=== PATIENT | female | born 1955 | race Caucasian/White ===

== ENCOUNTER → 2020-05-21 06:48 | Outpatient (CLI) | payer OTHER, MEDICARE, SELFPAY ==
[2020-05-21 11:45] LABS: Influenza Control Positive
[2020-05-21 20:23] LABS: SARS-CoV-2 RNA PCR Negative
== END ==
PROVIDERS: PCP Internal Medicine; Visit Provider Internal Medicine
DX: R68.89 Other general symptoms and signs (principal); Z20.822 Contact with and (suspected) exposure to COVID-19
CPT/HCPCS: 87804; C9803; U0003; U0005

== ENCOUNTER → 2021-02-15 03:03 | Outpatient (CLI) | payer OTHER, MEDICARE, SELFPAY ==
[2021-02-15 19:39] LABS: SARS-CoV-2 RNA PCR Negative
== END ==
PROVIDERS: PCP Internal Medicine; Visit Provider Internal Medicine
DX: Z20.822 Contact with and (suspected) exposure to COVID-19 (principal)
CPT/HCPCS: C9803; U0003; U0005

== ENCOUNTER 2022-03-17 10:47 | Emergency (ER) | payer OTHER, MEDICARE, SELFPAY ==
--- NOTE | ~2022-03-17 | XR_ITS ---
EXAMINATION: XR hand LT min 3V DATE: 03/17/2022 11:35 INDICATION: Left hand pain. TECHNIQUE: 3 views of left hand were obtained. COMPARISON: Left hand second digit radiographs 12/29/2013 FINDINGS: There is ulnar subluxation of second distal phalanx with respect to the middle phalanx. No fracture. There is severe osteoarthritis of first carpometacarpal joint, first interphalangeal joint, and second and third distal interphalangeal joints. There is mild to moderate osteoarthritis of the other interphalangeal joints and mild osteoarthritis of first metacarpophalangeal joint. IMPRESSION: 1. Polyarticular osteoarthritis. Reviewed, dictated and finalized at location A. [employer]
[2022-03-17 10:58] VITALS: BP 143/92; PULSE 109; RESP 16; TEMP 36.8; O2SAT 100
--- NOTE | 2022-03-17 11:43 | ED.GENADULT ---
HPI - General Adult General Chief complaint: Extremity Injury, Upper Stated complaint: lt hand injury Source: patient Mode of arrival: ambulatory Limitations: no limitations History of Present Illness HPI narrative: Patient presents for evaluation of pain, swelling, erythema at the left hand. She indicates she was caryring her dog yesterday when she bumped her hand against a sliding door. She now reports 10/10 pain in the affected area. She tried taking some meloxicam for her symptoms. Typically the medication is quite effective when she takes a for other reasons.. She does have a history of gout but has not had an exacerbation in many years. She is not on allopurinol. She is right hand dominant. She has decreased ROM in the left hand. She has been applying ice as well. Related Data Home Medications Medication Instructions Recorded Confirmed aspirin 81 mg tablet,delayed 81 mg PO DAILY 03/23/19 03/17/22 release (Adult Low Dose Aspirin) calcium carbonate 500 mg calcium 500 mg PO BID 03/23/19 03/17/22 (1,250 mg) tablet (Calcium 500) coenzyme Q10 100 mg capsule 100 mg PO DAILY 03/23/19 03/17/22 cyanocobalamin (vitamin B-12) 1,000 mcg PO DAILY 03/23/19 03/17/22 1,000 mcg capsule multivitamin 1 tablet PO DAILY 03/23/19 03/17/22 omega-3 fatty acids 1,000 mg 1,000 mg PO BID 03/23/19 03/17/22 capsule (Fish Oil Concentrate) folic acid 800 mcg tablet 0.4 mg PO DAILY 05/02/21 03/17/22 cholecalciferol (vitamin D3) 50 50 mcg PO .every other day 10/23/21 03/17/22 mcg (2,000 unit) capsule Allergies Allergy/AdvReac Type Severity Reaction Status Date / Time No Known Allergies Allergy Unknown Verified 03/17/22 10:54 Review of Systems Review of Systems: CONSTITUTIONAL: Denies fever, chills, or sweats. EYES: Denies visual changes, redness, or discharge. ENT: Denies rhinorrhea, congestion, sore throat, or otalgia. CARDIOVASCULAR: Denies chest pain, palpitations, or edema. RESPIRATORY: Denies cough or dyspnea. GASTROINTESTINAL: Denies abdominal pain, nausea, vomiting, or diarrhea. GENITOURINARY: Denies dysuria or hematuria. SKIN: Reports redness to the left hand. Denies rash or itching. MUSCULOSKELETAL: Reports swelling and pain in the left hand. NEUROLOGIC: Denies headache, numbness, dizziness, or weakness. PSYCHIATRIC: Denies anxiety or depression. [facility] Past Medical History Medical History (Updated 03/17/22 @ 11:59 by Scout Waldron, [facility], ) Benign essential hypertension BMI 29.0-29.9,adult BMI 30.0-30.9,adult BMI 32.0-32.9,adult Cataracts, bilateral Chronic pain of both knees Colon cancer screening Contact dermatitis DJD (degenerative joint disease), multiple sites Elevated homocysteine Elevated serum homocysteine level Encounter for preventive health examination Encounter for routine adult health examination without abnormal findings Exposure to COVID-19 virus Family history of diabetes mellitus Grief History of gestational diabetes Hypercalcemia Hyperlipidemia Lateral epicondylitis of right elbow Multiple allergies On [facility] drug therapy Post-menopausal Type O blood, Rh positive Varicose veins of both lower extremities Surgical History Surgical History Hx of total knee replacement Family History Family History Mother Hypertension Family history of chronic obstructive pulmonary disease Family history of diabetes mellitus in first degree relative Father Family history of diabetes mellitus in first degree relative Social History Social History Smoking status: Never smoker Alcohol intake: current Exam Narrative: GENERAL: Well-appearing, well-nourished, and in no acute distress. HEAD: Normocephalic, atraumatic. EYES: PERRLA and EOMI. ENT: Nares clear, no rhinorrhea or epistaxis. Mucous membranes moist.
[2022-03-17] MEDS: methylPREDNISolone SOD SUCC 125 MG VIAL IM (11:59)
== END 2022-03-17 12:06 | disposition home or self-care (01) ==
PROVIDERS: Emergency Provider Nurse Practitioner; PCP Internal Medicine
DX: S60.222A Contusion of left hand, initial encounter (principal); W22.8XXA Striking against or struck by other objects, initial encounter; M10.9 Gout, unspecified; I10 Essential (primary) hypertension; E78.5 Hyperlipidemia, unspecified; H26.9 Unspecified cataract; I83.93 Asymptomatic varicose veins of bilateral lower extremities
CPT/HCPCS: 73130; 96372; 99213; G0463; J2930

== ENCOUNTER 2022-04-02 12:33 | Outpatient (CLI) | payer OTHER, MEDICARE, SELFPAY ==
[2022-04-02 14:31] LABS: Influenza A QL RT-PCR Negative (Negative); Influenza B QL RT-PCR Negative (Negative); SARS-CoV-2 RNA PCR Positive
== END 2022-04-02 12:34 | disposition home or self-care (01) ==
LOC: ANHLAB 12:35
PROVIDERS: PCP Internal Medicine; Visit Provider Internal Medicine
DX: U07.1 COVID-19 (principal)
CPT/HCPCS: 87636

== ENCOUNTER 2024-08-19 17:49 | Emergency (ER) | payer OTHER, SELFPAY ==
[2024-08-19 18:07] VITALS: BP 147/80; PULSE 90; RESP 16; TEMP 36.9; O2SAT 99
--- NOTE | 2024-08-19 20:39 | ED.HEATRA ---
HPI - Head Injury General Chief complaint: Head Injury Stated complaint: head injury Time Seen by Provider: 08/19/24 18:25 Source: patient and RN notes reviewed Mode of arrival: ambulatory Limitations: no limitations History of Present Illness HPI Narrative: 68-year-old female presents Express Care complaining of fall. Patient said approximate hour ago she was walking inside her house when she tripped over the base of the sliding glass door tripped and fell and landed on her head and left buttocks. Patient denies any loss of consciousness, neck pain, back pain, or any other injuries. Patient denies any vision changes, blurry vision, dizziness, lightheadedness, focal weakness, slurred speech, or any other symptoms. Patient reports having a contusion to the left side of her forehead and a right-sided headache. She also states having pain in her left buttocks. Patient denies any pain with ambulation. She denies any hip pain, or leg pain. Patient denies taking any blood thinners but states taking a baby aspirin. Patient says her tetanus is up-to-date. Related Data Home Medications ?Medication ?Instructions ?Recorded ?Confirmed ?Last Taken ?Type aspirin 81 mg tablet,delayed 81 mg PO DAILY 03/23/19 01/30/24 Unknown History release (Adult Low Dose Aspirin) calcium carbonate (Calcium 500) 500 mg PO BID 03/23/19 01/30/24 Unknown History coenzyme Q10 100 mg capsule 100 mg PO DAILY 03/23/19 01/30/24 Unknown History cyanocobalamin (vitamin B-12) 1,000 mcg PO DAILY 03/23/19 01/30/24 Unknown History 1,000 mcg capsule multivitamin 1 tablet PO DAILY 03/23/19 01/30/24 Unknown History omega-3 fatty acids 1,000 mg 1,000 mg PO BID 03/23/19 01/30/24 Unknown History capsule (Fish Oil Concentrate) cholecalciferol (vitamin D3) 50 50 mcg PO .every other day 10/23/21 01/30/24 Unknown History mcg (2,000 unit) capsule lifitegrast 5 % eye drops in a drp 08/19/24 Unknown History dropperette (Xiidra) Allergies Allergy/AdvReac Type Severity Reaction Status Date / Time No Known Allergies Allergy Unknown Verified 08/19/24 19:14 Review of Systems Review of Systems: CONSTITUTIONAL: Denies fever, chills, or sweats. EYES: Denies visual changes, redness, or discharge. ENT: Denies rhinorrhea, congestion, sore throat, or otalgia. CARDIOVASCULAR: Denies chest pain, palpitations, dizziness, lightheadedness or edema. RESPIRATORY: Denies cough or dyspnea. GASTROINTESTINAL: Denies abdominal pain, nausea, vomiting, or diarrhea. GENITOURINARY: Denies dysuria or hematuria. SKIN: Denies rash or itching. Positive for contusion. MUSCULOSKELETAL: Denies back pain, joint pain, or myalgia. Positive for left buttock pain. NEUROLOGIC: Denies focal weakness, slurred speech, facial droop, seizures, loss of consciousness numbness, or weakness. Positive for headache. PSYCHIATRIC: Denies anxiety or depression. All other systems reviewed are negative, except as documented in HPI. 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 Multiple allergies DJD (degenerative joint disease), multiple sites Chronic pain of both knees Elevated homocysteine Hyperlipidemia Benign essential hypertension Contact dermatitis Surgical History Surgical History Hx of total knee replacement Family History Family History Mother Hypertension Family history of chronic obstructive pulmonary disease Family history of diabetes mellitus in first degree relative Father Family history of diabetes mellitus in first degree relative Social History Social History Smoking status: Never smoker Second hand tobacco smoke exposure: No Alcohol intake: current Lack of Transportation: No Lack of Food: Never True Current Housing: I Have Housing Concerned About Future Housing: No Difficulty Paying Gas/Electric Bills: No Difficulty Paying for Meds: No Currently Unemployed: No Difficulty w/ Childcare or Family Care: No Living arrangements: with family Gender identity (if verbalized by the patient): Female Comments At the time of my signature, I reviewed and agree with the nursing past medical, surgical, social, and family history. There is no relevant family history pertinent to the patient complaint. Exam Narrative: GENERAL: This is a well-nourished, well-developed adult, in no apparent distress. They are non ill-appearing, nontoxic appearing. HEAD: normocephalic. No raccoon eyes or Becerra signs. Small Hematoma above left eye and abrasion present. EYES: Sclera clear/white. Conjunctiva normal. Vision is grossly intact. Extraocular movements intact. Pupils PERRLA EARS: External ears normal, auditory canals clear and without drainage, TMs normal without perforation. Hearing grossly intact. NOSE: External nose normal with no obvious nasal discharge, nasal turbinates without redness, no rhinorrhea. THROAT: Mucous membranes moist, posterior pharynx clear, without erythema or swelling. Uvula midline. NECK: Neck supple, non-tender without lymphadenopathy, masses or thyromegaly. No cervical point tenderness, crepitus, step-offs. Midline tenderness. CARDIOVASCULAR: Regular rate and rhythm without murmurs, gallops, or rubs. RESPIRATORY: Clear to auscultation. Breath sounds equal bilaterally. No wheezes, rales, or rhonchi. SKIN: warm, Dry, intact with no suspicious lesions or rash, good texture and turgor. NEURO: awake, alert, and oriented to person, place and time. There were no obvious focal neurologic abnormalities. EXTREMITIES: No joint tenderness, effusion, or edema noted. No pelvic instability. Mild tenderness to palpation to left upper buttocks. No bony tenderness. BACK: Nontender without deformity. No CVA tenderness. No thoracic or lumbar point tenderness, crepitus, or step-offs. Course Course Emergency Course: Portions of this record may have been created with voice recognition software Level of Care: Express Care Visit Vital Signs Vital signs: Vital Signs Temperature 98.4 F 08/19/24 18:07 Pulse Rate 90 08/19/24 18:07 Respiratory Rate 16 08/19/24 18:07 Blood Pressure 147/80 H 08/19/24 18:07 Pulse Oximetry 99 08/19/24 18:07 Temperature 98.4 F 08/19/24 18:07 Pulse Rate 90 08/19/24 18:07 Respiratory Rate 16 08/19/24 18:07 Blood Pressure 147/80 H 08/19/24 18:07 Pulse Oximetry 99 08/19/24 18:07 Reviewed Transfer Transfered to: [facility] Transportation: Other (Private vehicle) Transfer rationale: Higher level care, head injury, fall Accepting physician: Dr. Bailey MDM - Head Injury MDM Narrative Medical decision making narrative: Patient is reporting headache and has hematoma to her forehead. Neuro exam otherwise unremarkable. Given her age and evidence of a head injury, it is recommend the patient seek a higher level care and proceed immediately to the emergency department. Patient is agreeable to go to [facility]. [facility] and spoke to Dr. Bailey who is aware this patient and who accepted this patient for transfer. Offered patient EMS and she declined. Patient states her spouse will take her via private vehicle. Advised patient to proceed immediately to the ER remain NPO. Differential Diagnosis Differential diagnosis: Likely concussion without loss of consciousness, closed head injury, subdural hematoma and other (Intracranial hemorrhage, hip contusion, pelvic fracture) Critical Care Time Critical Care Time Critical Care Time: No Discharge Plan Discharge Clinical Impression: Fall, Head injury, Contusion of head, Coccygeal pain, acute Patient Disposition: Acute Care Hospital Condition: Stable Patient Language: Nepali Prescriptions: No Action Xiidra 5 % dropperette folic acid 800 mcg tablet 800 mcg PO DAILY Qty: 90 0RF Rx Instructions: Please disregard script. Thank you multivitamin Tablet 1 tablet PO DAILY omega-3 fatty acids [Fish Oil Concentrate] 1,000 mg capsule 1,000 mg PO BID coenzyme Q10 100 mg capsule 100 mg PO DAILY calcium carbonate [Calcium 500] 500 mg calcium (1,250 mg) tablet 500 mg PO BID aspirin [Adult Low Dose Aspirin] 81 mg tablet,delayed release (DR/EC) 81 mg PO DAILY cyanocobalamin (vitamin B-12) 1,000 mcg capsule 1,000 mcg PO DAILY betamethasone dipropionate 0.05 % cream 1 applic TOPICAL BID PRN (Reason: rash) Qty: 30 0RF cholecalciferol (vitamin D3) 50 mcg (2,000 unit) capsule 50 mcg PO .every other day hydrocortisone [Proctosol HC] 2.5 % cream with perineal applicator 1 applic [place] BID PRN (Reason: hemorrhoids) Qty: 28 1RF amlodipine 10 mg tablet 10 mg PO DAILY Qty: 90 1RF meloxicam 15 mg tablet 15 mg PO DAILY Qty: 90 0RF pravastatin 40 mg tablet See Rx Instructions .ROUTE .COMPLEX Qty: 90 0RF Dose Instruction: Take 1 tablet by mouth once daily Rx Instructions: Take 1 tablet by mouth once daily hydrochlorothiazide 12.5 mg tablet See Rx Instructions .ROUTE .COMPLEX Qty: 30 1RF Dose Instruction: Take 1 tablet by mouth once daily Rx Instructions: Take 1 tablet by mouth once daily candesartan-hydrochlorothiazid 32-12.5 mg tablet 1 tablet PO DAILY Qty: 90 1RF Follow-up/Referrals: Watson Tang MD [Primary Care Provider] - Time of Disposition: 18:47
== END 2024-08-19 18:50 | disposition short-term general hospital (02) ==
PROVIDERS: PCP Internal Medicine
DX: S09.90XA Unspecified injury of head, initial encounter (principal); W18.09XA Striking against other object with subsequent fall, initial encounter; S00.83XA Contusion of other part of head, initial encounter; M53.3 Sacrococcygeal disorders, not elsewhere classified; I10 Essential (primary) hypertension; E78.5 Hyperlipidemia, unspecified; M15.9 Polyosteoarthritis, unspecified; H26.9 Unspecified cataract; Z79.82 Long term (current) use of aspirin
CPT/HCPCS: 99213; G0463

== ENCOUNTER 2024-08-19 19:05 | Emergency (ER) | payer OTHER, SELFPAY ==
--- NOTE | ~2024-08-19 | CT_ITS ---
History: Fall PROCEDURE: CT head without contrast. COMPARISON: None TECHNIQUE: Axial imaging of the head performed from the skull base to the vertex without IV contrast. Sagittal a nd coronal reformations obtained. DLP: 605 mGy-cm FINDINGS: The ventricles are normal in size, shape and position. There is no mass, mass effect or midline shift. There is no abnormal extra-axial fluid collection or intracranial hemorrhage. Visualized paranasal sinuses are clear. The mastoid air cells are well aerated. No acute displaced fractures within the overlying cranium. Impression: No acute intracranial hemorrhage or suspicious mass effect. Reviewed, dictated and finalized at location A. Impression: No acute intracranial hemorrhage or suspicious mass effect.
--- NOTE | ~2024-08-19 | CT_ITS ---
History: Fall PROCEDURE: CT cervical spine without intravenous contrast. COMPARISON: Reference is made to a plain film evaluation of the cervical spine dated 03/17/2013 TECHNIQUE: Multiple contiguous axial images of the cervical spine were performed without the administration of i ntravenous contrast. DLP: 271 mGy-cm FINDINGS: Straightening and slight reversal of the normal curvature of the cervical spine is identified, likely muscular in origin. Significant degenerative disease is identified, with osteophyte formation, disc space narrowing and o ssification of the posterior longitudinal ligament at the levels of C5/C6 and C6/C7. No acute fractures are present. The bilateral lung apices are unremarkable. No acute soft tissue abnormality is present. The airway is patent. Impression: Straightening and slight reversal of the normal curvature of the cervical spine, likely muscular in o rigin. Severe degenerative disease, without acute fracture. Reviewed, dictated and finalized at location A. Impression: Straightening and slight reversal of the normal curvature of the cervical spine , likely muscular in origin. Severe degenerative disease, without acute fracture.
[2024-08-19 19:14] VITALS: BP 167/87; PULSE 81; RESP 16; TEMP 36.6; O2SAT 100
--- NOTE | 2024-08-19 20:01 | ED.GENADULT ---
HPI - General Adult General Chief complaint: Head Injury Stated complaint: head injury Time Seen by Provider: 08/19/24 19:53 History of Present Illness HPI narrative: 68-year-old female presents to the emergency department for evaluation after having a head injury. Patient states she has been working in the [employer] was perhaps a little tired when she came inside her toe caught the door frame causing her to fall she landed on her left buttock and did strike the left front of her head. Patient denies any loss of consciousness. Patient does have pain in the left muscular buttock but denies any left hip pain. Patient does have a hematoma with abrasion to her left forehead but no laceration. Patient denies any neck or back pain. Related Data Home Medications ?Medication ?Instructions ?Recorded ?Confirmed ?Last Taken ?Type aspirin 81 mg tablet,delayed 81 mg PO DAILY 03/23/19 01/30/24 Unknown History release (Adult Low Dose Aspirin) calcium carbonate (Calcium 500) 500 mg PO BID 03/23/19 01/30/24 Unknown History coenzyme Q10 100 mg capsule 100 mg PO DAILY 03/23/19 01/30/24 Unknown History cyanocobalamin (vitamin B-12) 1,000 mcg PO DAILY 03/23/19 01/30/24 Unknown History 1,000 mcg capsule multivitamin 1 tablet PO DAILY 03/23/19 01/30/24 Unknown History omega-3 fatty acids 1,000 mg 1,000 mg PO BID 03/23/19 01/30/24 Unknown History capsule (Fish Oil Concentrate) cholecalciferol (vitamin D3) 50 50 mcg PO .every other day 10/23/21 01/30/24 Unknown History mcg (2,000 unit) capsule lifitegrast 5 % eye drops in a drp 08/19/24 Unknown History dropperette (Xiidra) Allergies Allergy/AdvReac Type Severity Reaction Status Date / Time No Known Allergies Allergy Unknown Verified 08/19/24 19:14 Review of Systems Review of Systems: All systems reviewed & are unremarkable except as noted in HPI and below PMFSH Past Medical History Medical History Rash Type O blood, Rh positive BMI 32.0-32.9,adult Grief Cataracts, bilateral Encounter for routine adult health examination without abnormal findings Elevated serum homocysteine level Family history of diabetes mellitus History of gestational diabetes Lateral epicondylitis of right elbow Post-menopausal Varicose veins of both lower extremities Exposure to COVID-19 virus Colon cancer screening BMI 30.0-30.9,adult Hypercalcemia BMI 29.0-29.9,adult 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 Multiple allergies DJD (degenerative joint disease), multiple sites Chronic pain of both knees Elevated homocysteine Hyperlipidemia Benign essential hypertension Contact dermatitis Surgical History Surgical History Hx of total knee replacement Family History Family History Mother Hypertension Family history of chronic obstructive pulmonary disease Family history of diabetes mellitus in first degree relative Father Family history of diabetes mellitus in first degree relative Social History Social History Smoking status: Never smoker Second hand tobacco smoke exposure: No Alcohol intake: current Lack of Transportation: No Lack of Food: Never True Current Housing: I Have Housing Concerned About Future Housing: No Difficulty Paying Gas/Electric Bills: No Difficulty Paying for Meds: No Currently Unemployed: No Difficulty w/ Childcare or Family Care: No Living arrangements: with family Gender identity (if verbalized by the patient): Female Exam Narrative: APPEARANCE: Well appearing, no pain, no distress, well-nourished. HEAD: normocephalic, left forehead contusion. EYES: PERRLA/EOMI, conjunctivae clear. NOSE: Normal no drainage EARS:TMS clear with good light reflex. THROAT: Pharynx clear, no exudate. NECK: Supple. No adenopathy, no masses. RESPIRATORY: Airway patent, respirations nonlabored. Clear to auscultation bilaterally, no rales, rhonchi, wheezing. CARDIOVASCULAR: Regular rate and rhythm without murmurs rubs or gallops. ABDOMINAL: Soft, nontender, nondistended, normal bowel sounds MUSCULOSKELETAL: Moves all extremities. Strength/ROM intact, No edema, No calf tenderness. NEURO: Alert. Cranial nerves II through XII intact. Good gait. Good coordination SKIN: Warm, dry. Normal Color Course Vital Signs Vital signs: Vital Signs Temperature 97.8 F 08/19/24 19:14 Pulse Rate 81 08/19/24 19:14 Respiratory Rate 16 08/19/24 19:14 Blood Pressure 167/87 H 08/19/24 19:14 Pulse Oximetry 100 08/19/24 19:14 Oxygen Delivery Room Air 08/19/24 19:14 Temperature 97.8 F 08/19/24 19:14 Pulse Rate 76 08/19/24 20:51 Respiratory Rate 15 08/19/24 20:51 Blood Pressure 152/74 H 08/19/24 20:51 Pulse Oximetry 100 08/19/24 20:51 Oxygen Delivery Room Air 08/19/24 19:14 Medical Decision Making MDM Narrative Medical decision making narrative: 68-year-old female presents emergency department for evaluation after having a mechanical ground level fall. Patient had negative imaging of her head and cervical spine. Patient was able ambulate at baseline. Patient denies that pain or injury. Patient was updated the results of her workup and treatment plan for home. All questions concerns were addressed patient was well-appearing at time of discharge. Differential Diagnosis Differential Diagnosis: Subdural hematoma, subarachnoid hemorrhage, cervical spine fracture, hip fracture, hip contusion, ACS, vertigo, orthostatic hypotension, began a fall Vital Signs Vital Signs: Vital Signs Temperature 97.8 F 08/19/24 19:14 Pulse Rate 81 08/19/24 19:14 Respiratory Rate 16 08/19/24 19:14 Blood Pressure 167/87 H 08/19/24 19:14 Pulse Oximetry 100 08/19/24 19:14 Oxygen Delivery Room Air 08/19/24 19:14 Temperature 97.8 F 08/19/24 19:14 Pulse Rate 76 08/19/24 20:51 Respiratory Rate 15 08/19/24 20:51 Blood Pressure 152/74 H 08/19/24 20:51 Pulse Oximetry 100 08/19/24 20:51 Oxygen Delivery Room Air 08/19/24 19:14 Imaging Data Radiologist's impression: Impressions Head CT 08/19/24 19:42 Impression: No acute intracranial hemorrhage or suspicious mass effect. Cervical Spine CT 08/19/24 19:43 Impression: Straightening and slight reversal of the normal curvature of the cervical spine, likely muscular in origin. Severe degenerative disease, without acute fracture. Discharge Plan Discharge Clinical Impression: Contusion of head, Contusion of left buttock Patient Disposition: Home Condition: Stable Instructions: Antibiotic Form, Head Injury (ED) Additional Instructions: Tylenol and ibuprofen for pain control. Have close follow-up with your primary care physician as scheduled. If you have any worsening symptoms then please call or return to the emergency department. Patient Language: Albanian Prescriptions: No Action Xiidra 5 % dropperette folic acid 800 mcg tablet 800 mcg PO DAILY Qty: 90 0RF Rx Instructions: Please disregard script. Thank you multivitamin Tablet 1 tablet PO DAILY omega-3 fatty acids [Fish Oil Concentrate] 1,000 mg capsule 1,000 mg PO BID coenzyme Q10 100 mg capsule 100 mg PO DAILY calcium carbonate [Calcium 500] 500 mg calcium (1,250 mg) tablet 500 mg PO BID aspirin [Adult Low Dose Aspirin] 81 mg tablet,delayed release (DR/EC) 81 mg PO DAILY cyanocobalamin (vitamin B-12) 1,000 mcg capsule 1,000 mcg PO DAILY betamethasone dipropionate 0.05 % cream 1 applic TOPICAL BID PRN (Reason: rash) Qty: 30 0RF cholecalciferol (vitamin D3) 50 mcg (2,000 unit) capsule 50 mcg PO .every other day hydrocortisone [Proctosol HC] 2.5 % cream with perineal applicator 1 applic [place] BID PRN (Reason: hemorrhoids) Qty: 28 1RF amlodipine 10 mg tablet 10 mg PO DAILY Qty: 90 1RF meloxicam 15 mg tablet 15 mg PO DAILY Qty: 90 0RF pravastatin 40 mg tablet See Rx Instructions .ROUTE .COMPLEX Qty: 90 0RF Dose Instruction: Take 1 tablet by mouth once daily Rx Instructions: Take 1 tablet by mouth once daily hydrochlorothiazide 12.5 mg tablet See Rx Instructions .ROUTE .COMPLEX Qty: 30 1RF Dose Instruction: Take 1 tablet by mouth once daily Rx Instructions: Take 1 tablet by mouth once daily candesartan-hydrochlorothiazid 32-12.5 mg tablet 1 tablet PO DAILY Qty: 90 1RF Follow-up/Referrals: Watson Tang MD [Primary Care Provider] -
[2024-08-19 20:51] VITALS: BP 152/74; PULSE 76; RESP 15; O2SAT 100
== END 2024-08-19 20:52 | disposition home or self-care (01) ==
LOC: ANHED 20:15
PROVIDERS: Emergency Provider Emergency Medicine; PCP Internal Medicine
DX: S00.93XA Contusion of unspecified part of head, initial encounter (principal); S30.0XXA Contusion of lower back and pelvis, initial encounter; W18.30XA Fall on same level, unspecified, initial encounter; Z79.82 Long term (current) use of aspirin; E78.5 Hyperlipidemia, unspecified; I10 Essential (primary) hypertension
CPT/HCPCS: 70450; 72125; 99284

== ENCOUNTER 2024-08-24 09:33 | Outpatient (CLI) | payer OTHER, SELFPAY ==
--- NOTE | ~2024-08-24 | XR_ITS ---
XR knee LT min 4V Ordering provider: Watson Tang MD History: . M25.562 - Pain in left knee . Comparison: None. FINDINGS: BONES: No acute fracture or dislocation. 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 JOINT SPACES: Hemiarthroplasty is noted medially. Marginal osteophytes in the patella. SOFT TISSUES: Normal. IMPRESSION: No acute osseous abnormality left knee. Hemiarthroplasty seen in the medial aspect of the left knee. . Reviewed, dictated and finalized at location A.
== END 2024-08-24 09:34 | disposition home or self-care (01) ==
PROVIDERS: PCP Internal Medicine; Visit Provider Internal Medicine
DX: S89.92XA Unspecified injury of left lower leg, initial encounter (principal); X58.XXXA Exposure to other specified factors, initial encounter; M25.562 Pain in left knee; Z96.652 Presence of left artificial knee joint
CPT/HCPCS: 73564